=== PATIENT | female | born 1985 | race Caucasian/White ===

== ENCOUNTER 2024-07-24 13:35 | Emergency (ER) | payer OTHER, SELFPAY ==
[2024-07-24 13:43] VITALS: BP 119/74; PULSE 78; RESP 16; TEMP 36.6
--- NOTE | 2024-07-24 14:00 | ED_ITS ---
HPI - Skin/Abscess/Foreign Bdy General Chief complaint: Skin/Abscess/Foreign Body Stated complaint: 2 infections in my legs from IV user Time Seen by Provider: 07/24/24 13:46 History of Present Illness HPI narrative: 38F h/o IVDU and opiate use d/o p/w chronic leg wounds; they Have been present there for 2 years, they are not worse than usual, denies any pain, she has been trying to address the whenever she is able to stop using IV drugs. No fevers or chills or other systemic symptoms, chest pain or shortness of breath. Related Data Allergies Allergy/AdvReac Type Severity Reaction Status Date / Time No Known Allergies Allergy Verified 07/24/24 14:06 Review of Systems Review of Systems: All systems reviewed & are unremarkable except as noted in HPI and below Exam Narrative: EXAMINATION OF ORGAN SYSTEMS/BODY AREAS: Constitutional: Vital signs per nursing GENERAL:[No acute distress, non-toxic appearing.] HEAD: Normal with no signs of head trauma. EYES: EOMI, conjunctiva normal ENT: Hearing grossly intact LUNGS: Nonlabored breathing. HEART: [Regular rate and rhythm], normal perfusion lower legs ABD: No distension EXT: Normal range of motion SKIN: Ulcers bilateral legs that are deep to muscle, appear chronic, no surrounding erythema NEURO: [Alert and oriented x 3. No gross focal sensory or strength deficits.] PSYCH: Normal affect Course Vital Signs Vital signs: Vital Signs Temperature 97.9 F 07/24/24 13:43 Pulse Rate 78 07/24/24 13:43 Respiratory Rate 16 07/24/24 13:43 Blood Pressure 119/74 07/24/24 13:43 Temperature 97.9 F 07/24/24 13:43 Pulse Rate 78 07/24/24 13:43 Respiratory Rate 16 07/24/24 13:43 Blood Pressure 119/74 07/24/24 13:43 MDM - Skin/Abscess/Foreign Bdy MDM Narrative Medical decision making narrative: 38F p/w chronic leg wounds from IVDU; no systemic sx, well appearing here, leg ulcers bilateral and deep to muscle but no obvious signs of infection and nl VS here I do feel stable for dc w/ care instructions and abx, first dose started here. Pt agreeable to plan, [place] on board with plan. PCP f/u provided. Discharge Plan Discharge Clinical Impression: Bilateral leg ulcer Patient Disposition: Inpatient Rehab Facility Condition: Stable Instructions: Chronic Wounds (ED) Additional Instructions: please stop injecting drugs into your wounds. Take the antibiotics as prescribed, make sure you clean the wounds and dress them well, if you start noticing more redness or pain or drainage, fevers or chills or nausea or vomiting, come back to the emergency room. Follow up with a PCP; if you don't have one you can call below. Prescriptions: New doxycycline hyclate 100 mg capsule 100 mg PO Q12H 7 Days Qty: 14 0RF bacitracin 500 unit/gram ointment 1 applic topical BID Qty: 30 0RF Follow-up/Referrals: Jersey Guzman MD [Physician] - 2 Days UNKNOWN,DOCTOR [Non-Staff] -
--- NOTE | 2024-07-24 14:03 | PC.NURSE ---
Pt states she doesn't feel pain to bilateral lower extremities. Bilateral lower leg wounds per pt started 2 years ago, pt continued to inject Fentanyl in bilateral wounds causing worsening of wounds. Pt reports this is the first time she has sought treatment for wounds in 2 years.
--- NOTE | 2024-07-24 14:23 | PC.NURSE ---
This RN spoke with MONY Bryant at [facility]. D/c instructions reviewed with MONY Bryant. Pt will be sent with short supply of wound care. Pt d/c to facility with 2x printed prescriptions. 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
[2024-07-24 14:31] VITALS: BP 101/71; PULSE 75; RESP 14; O2SAT 98
[2024-07-24] MEDS: DOXYCYCLINE HYCLATE 100 MG TABLET PO (14:35)
== END 2024-07-24 14:39 | disposition home or self-care (01) ==
LOC: ANHED 14:01
PROVIDERS: Emergency Provider Emergency Medicine
DX: L97.929 Non-pressure chronic ulcer of unspecified part of left lower leg with unspecified severity (principal); L97.919 Non-pressure chronic ulcer of unspecified part of right lower leg with unspecified severity; F19.90 Other psychoactive substance use, unspecified, uncomplicated
CPT/HCPCS: 87070; 87081; 87181; 87205; 99283; A9270